=== PATIENT | male | born 1980 | race Caucasian/White ===

== ENCOUNTER 2017-05-20 07:37 | Emergency (ER) | payer BC, OTHER ==
[~2017-05-20] VITALS: Ht 193 cm; Wt 81.5 kg
[2017-05-20 07:38] VITALS: BP 141/86; PULSE 124; RESP 18; TEMP 98.6; O2SAT 97
[2017-05-20 07:41] VITALS: PULSE 126
[2017-05-20] MEDS ORDERED: [UNRECOGNIZED DRUG - CODE] (07:51)
[2017-05-20] MEDS ORDERED: OFFICE MEDICATION (07:51)
--- NOTE | 2017-05-20 08:29 | PD ---
HPI Chief Complaint: jaw dislocation Time Seen by Provider: 08:02 Travel History International Travel<30 days: No Contact w/Intl Traveler<30days: No Traveled to known affect area: No History of Present Illness HPI 36-year-old male states that he on and now he cannot close his jaw over the past couple hours. He states he's had this happen to him before but not to the point that he could not close his mouth. He denies any other concurrent complaints but history is limited on initial evaluation as patient is having difficulty talking PFSH Past Medical History Inguinal Hernia: Yes Medical other: Yes (HIV, acromegaly) Past Surgical History Other Surgery: Yes (transresection for pituitary adenoma) Social History Alcohol Use: No Tobacco Use: No Substance Use: No Allergies-Medications (Allergen,Severity, Reaction): Coded Allergies: No Known Allergies (Unverified , 05/20/17) Reported Meds & Prescriptions Reported Meds & Active Scripts Active Reported Office Medication (Miscellaneous Medication) Misc Somavert Inj (Pegvisomant Inj) 20 Mg Inj Review of Systems ROS Limitations: Other: (jaw dislocation) Except as stated in HPI: all other systems reviewed are Neg Physical Exam Exam Limitations: Other: (jaw dislocation) Narrative GENERAL: Well-nourished, well-developed patient. SKIN: Warm and dry. HEAD: Normocephalic and atraumatic. EYES: No injection or drainage. ENT: No nasal drainage noted. Bilateral anterior mandibular dislocation noted NECK: Supple, trachea midline. CARDIOVASCULAR: Regular rate and rhythm RESPIRATORY: No increased effort. No accessory muscle use. NEUROLOGICAL: Awake and alert. Motor and sensory grossly within normal limits. Speech limited with dislocation Data Data Last Documented VS Vital Signs Date Time Temp Pulse Resp B/P (MAP) Pulse Ox O2 Delivery O2 Flow Rate FiO2 05/20/17 07:41 126 05/20/17 07:38 98.6 18 141/86 (104) 97 Room Air Orders Orders Ed Discharge Order (05/20/17 08:29) [facility] Medical Decision Making Medical Screen Exam Complete: Yes Emergency Medical Condition: Yes Medical Record Reviewed: Yes (past history confirmed) Differential Diagnosis Dislocation, fracture Narrative Course Diagnosis confirmed on exam, patient agreed to reduction which was done with 1 attempt and patient was happy and talking after click appreciated. After observing in the emergency room Patient denies any new complaints and states that they are still feeling better. Patient happy with care, all questions answered. Patient knows that follow up is incumbent on them and to return to the emergency room immediately if new or worsening symptoms develop. Patient given strict return precautions, vitals reviewed and improved postreduction, agrees to further workup as an outpatient. Procedures Procedure Narrative After the risks and benefits were discussed the following procedure was performed: Extraoral mandibular dislocation Applied steady pressure coronoid process and anterior aspect of the mandible ramus and applied pressure posteriorly while on contralateral side placed fingers from other hand on angle of mandible and applied anterior force until a click was appreciated than the other side spontaneously went back in place, patient tolerated procedure Diagnosis Primary Impression: Dislocation of mandible Qualified Codes: S03.00XA - Dislocation of jaw, unspecified side, initial encounter Patient Instructions: General Instructions Additional Instructions: return as needed, follow with primary this week Med/Other Pt SpecificInfo: No Change to Meds Disposition: 01 DISCHARGE HOME Condition: Stable Susi Zimmerman MD May 20, 2017 08:29
[2017-05-20 09:02] VITALS: BP 130/76
== END 2017-05-20 09:02 | disposition home or self-care (01) ==
LOC: NEPE 07:37
DX: S03.00XA Dislocation of jaw, unspecified side, initial encounter (principal); Z21 Asymptomatic human immunodeficiency virus [HIV] infection status; X58.XXXA Exposure to other specified factors, initial encounter
CPT/HCPCS: 21480